=== PATIENT | female | born 1990 | race Caucasian/White ===

== ENCOUNTER 2017-01-07 12:00 | Inpatient (IN) | payer OTHER ==
[~2017-01-07] VITALS: Ht 149.9 cm; Wt 37.6 kg
--- NOTE | ~2017-01-07 | DS ---
Unit #: [id number] #: [id number] Patient: ANALY ACEVES [id number] [facility] [address] [place] [address] [id number] MR#: [id number] NAME: ANALY ACEVES ROOM: [facility] Age: 26 Sex: F Admission Date: 01/07/2017 : 1990 Discharge Date: 01/09/2017 Attending Physician: Umair Tracey M.D. Primary Care Physician: Primary Care Physician No DISCHARGE SUMMARY REASON FOR ADMISSION Depression. DIAGNOSTIC STUDIES LABORATORY RESULTS: Unremarkable. HOSPITAL COURSE The patient was admitted to inpatient unit on 01/07/2017 and discharged on 01/09/2017. The patient was treated with expressive therapy, medication management, psychotherapy, and structured milieu. The patient was cooperative and showed improvement. Denied any suicidal or homicidal ideations, or any psychotic symptom. Subsequently, the patient was discharged with a plan to follow up in outpatient program. DISCHARGE MEDICATIONS Lexapro 10 mg daily for depression, Vistaril 25 mg t.i.d. for anxiety, and Desyrel 50 mg at bedtime for sleep. DISCHARGE DIAGNOSES Psychiatric: Major depressive disorder, recurrent, severe, F33.2; anxiety disorder, not otherwise specified, F40.01. Secondary diagnosis: Deferred. Stressors: Psychosocial stressors. DISCHARGE INSTRUCTIONS The patient to follow up in outpatient clinic as per social work administrator. CONDITION ON DISCHARGE The patient was pleasant and cooperative. Denied any psychotic symptom or any suicidal ideation. PROGNOSIS Guarded. DIET AND ACTIVITY As tolerated. Dictated by... Umair Tracey M.D. Unit #: [id number] #: [id number] Patient: ANALY ACEVES SZC/modl TD: 01/09/2017 19:39 JOB #: [id number] DISCHARGE SUMMARY Page 1 of 1 X Umair Tracey MD X DISCHARGE SUMMARY
--- NOTE | ~2017-01-07 | PN ---
Unit #: [id number] #: [id number] Patient: POONAM ACEVES [id number] [facility] [address] [place] [address] [id number] I MR#: [id number] NAME: POONAM ACEVES ROOM: [facility] Age: 26 Sex: F Admission Date: 01/07/2017 : 1990 Attending Physician: Umair Tracey M.D. Admitting Physician: Umair Tracey M.D. Primary Care Physician: Primary Care Physician Mariah ROJO PROGRESS NOTES DATE 01/08/2017 DISCUSSION Poonam is a 26-year-old female seen on 01/08/2017. Patient interviewed. Chart reviewed. Obtained information from nursing staff. Patient compliant, cooperative. Mood sad, dysphoric, flat affect, guarded, anxious. Patient adjusting fairly well to unit rules. Complete review of system unremarkable. MENTAL STATUS EXAMINATION General appearance, patient dressed casually. Attention span, concentration fair. Oriented in time, place and person. Mood and affect sad, dysphoric. Speech monotone. Thought process concrete. Patient denied any thoughts of harming self or others or any psychotic symptoms. Recent and remote memory poor. Insight and judgement poor. DIAGNOSIS Major depressive disorder, recurrent, severe. ASSESSMENT/PLAN Advised to start patient on Celexa 20 mg daily, trazodone 50 mg at bedtime and Vistaril 25 mg t.i.d. for anxiety. We will continue to follow and make necessary changes if needed. Dictated by... Yolanda Mendez/akash TD: 01/09/2017 18:33 JOB #: [id number] Unit #: [id number] #: [id number] Patient: POONAM ACEVES PEAISMAEL PROGRESS NOTES Page 1 of 1 X Umair Tracey MD PROGRESS NOTE
--- NOTE | ~2017-01-07 | HP ---
Unit #: [id number] #: [id number] Patient: POONAM ACEVES [id number] [place] [address] [id number] I MR#: [id number] NAME: POONAM ACEVES ROOM: [facility] Age: 26 Sex: F Admission Date: 01/07/2017 : 1990 Attending Physician: Umair Tracey M.D. Admitting Physician: Umair Tracey M.D. Primary Care Physician: Primary Care Physician No HISTORY AND PHYSICAL HISTORY OF PRESENT ILLNESS Poonam is a 26 year old admitted to [address] [place] [address] with depression and verbalizing wanting to hurt herself. PAST MEDICAL HISTORY Nothing significant. PAST SURGICAL HISTORY Nothing reported. ALLERGIES No known drug allergies. SOCIAL HISTORY Smokes 1 1/2 packs per day. Drinks alcohol socially. Denies illicit drug use. FAMILY HISTORY Medically noncontributory. REVIEW OF SYSTEMS CONSTITUTIONAL: No fever or chills. HEENT: Denies any sore throat, ear pain or runny nose. CARDIOVASCULAR: Denies chest pain, irregular heart rhythm or palpitations. CHEST: Denies shortness of breath or cough. No hemoptysis. GASTROINTESTINAL: Denies nausea, vomiting, diarrhea or chronic constipation. ENDOCRINE: Denies history of increased thirst or urination. No recent significant weight loss or gain. GENITOURINARY: Denies dysuria, frequency, or hematuria. SKIN: Denies any rashes. HEMATOLOGIC: Denies history of increased bleeding or bruising. MUSCULOSKELETAL: Denies any hot, swollen joints. No generalized muscle pain. NEUROLOGIC: Denies problems with vision or speech. No frequent, severe headaches. No numbness, tingling or weakness in any extremities. Denies loss of bladder or bowel control. CURRENT MEDICATIONS 1. Desyrel 50 mg q h.s. 2. Milk of Magnesia p.r.n. 3. Maalox p.r.n. Unit #: [id number] #: [id number] Patient: POONAM ACEVES 4. Tylenol p.r.n. 5. Vistaril 25 mg t.i.d. 6. Lexapro 10 mg q day 7. Nicotine patch 14 mg q day PHYSICAL EXAMINATION GENERAL: Alert, well-nourished, in no apparent distress. VITAL SIGNS: Blood pressure 100/74, heart rate 80, respirations 16, temperature 98.6. WEIGHT: 83 pounds. HEIGHT: 4'11". SKIN: Warm and dry without rash or lesion. HEENT: Normocephalic. TMs not viewed. Oral and nasal passages clear. Conjunctivae clear. Pupils equal, round and reactive to light and accommodation. Extraocular movements intact. NECK: Supple without lymphadenopathy or thyromegaly. HEART: Regular rate and rhythm without murmur. LUNGS: Clear. ABDOMEN: Soft, nontender. : Not done. EXTREMITIES: No evidence of cyanosis, clubbing or edema. Moves all extremities without focal deficit. NEUROLOGICAL: Grossly within normal limits. Cranial Nerves: II: Visual brown are intact. III, IV AND : Extraocular movements are intact. Pupils are equal, round and reactive to light. V: Facial sensation is grossly normal. VII: Facial movements and expression are normal. VIII: Auditory acuity grossly intact. IX, X: Uvula is midline. Phonation is normal. XI: Patient shrugs shoulders and turns head normally. XII: Tongue protrudes in the midline. Sensory and Motor Function: Sensory and motor sensation is grossly normal. Motor: moves all extremities well. Coordination: Gait is normal. Deep Tendon Reflexes: Intact. IMPRESSION Psychiatric admission RECOMMENDATIONS PSYCHIATRIC: Per psychiatrist. MEDICAL: I see no contraindications to participating in facility's activities. MEDICAL PROGNOSIS Good. MEDICAL CONDITION Stable. Dictated by... Joceline Bolton P.A.-C. for Yolanda Hills/kathryn Unit #: [id number] #: [id number] Patient: POONAM ACEVES TD: 01/09/2017 04:07 JOB #: [id number] HISTORY AND PHYSICAL Page 1 of 1 X Joceline Bolton HISTORY AND PHYSICAL
--- NOTE | ~2017-01-07 | A ---
[facility] Nutrition Therapy DATE: 01/08/17 Patient: ANALY ACEVES Physician: EL Address: [address] [place] [address] Room/Bed: P115-1 [facility], Zip: [place] [address] Admit Date: 01/07/17 Date of : [birth year] Height: 4 11 Weight: 82 [id number] NUTRITIONAL ASSESSMENT: REASON: LOW BMI (16.8) PATIENT ADMITTED FOR SI AND DEPRESSION PMH: NONE Anthropometrics: HT: 4'11", WT: 83#, BMI: 16.8, %IBW: 85 Labs: NO LABS AVAILABLE Meds: DESYREL, VISTARIL, LEXAPRO Assessment: PATIENT IS A 26 Y/O FEMALE ADMITTED FOR SI AND DEPRESSION. PATIENT IS CURRENTLY EMPLOYED, LIVES WITH HER 3 CHILDREN, SMOKES 1 1/2 PPD, HAS OCCASIONAL ETOH USE, AND DENIES ANY SUBSTANCE ABUSE. IT IS NOTED THAT PATIENT HAS BEEN NON-COMPLIANT WITH HER ANXIETY AND DEPRESSION MEDICATIONS FOR THE LAST MONTH. PER NEEDS ASSESSMENT PATIENT STATED A GOOD APPETITE WITH NO RECENT WEIGHT CHANGES, AND SHE HAS DECREASED SLEEP. THERE IS NO WEIGHT HX NOTED IN MEDITECH AND THERE ARE NO CURRENT PO INTAKES AVAILABLE. PATIENT DID NOT SCORE ANY NUTRITIONAL RISK POINTS. THERE ARE NO SKIN OR GI ISSUES NOTED ATT. CURRENT PSYCH MEDS MAY CAUSE FLUCTUATIONS IN WEIGHT AND APPETITE. PATIENT IS ON A REGULAR DIET. Dx: INADEQUATE NUTRIENT INTAKE R/T CURRENT CONDITION, DEPRESSION AEB LOW BMI, <90% IBW Intervention: REGULAR DIET, LARGER PORTIONS, MEDS PER MD, PSYCH Monitoring, Evaluation and Goals: 1. ADEQUATE PO INTAKES >50% OF MEALS 2. PREVENT, CORRECT MICRO/MACRO NUTRIENT DEFICIENCIES 3. WEIGHT; PROMOTE A STEADY WEIGHT GAIN TOWARDS A HEALTHY BMI OF 19-25, PREVENT WEIGHT LOSS MONITOR: WEIGHTS, LABS, PO/FLUID INTAKES Recommendations: 1. CONTINUE REGULAR DIET TOLERATED. OFFER SNACKS BETWEEN MEALS. WILL INCREASE ENTREES TO LARGER PORTIONS D/T NEED FOR INCREASED CALORIC INTAKE 2. ENCOURAGE ADEQUATE KCAL AND PROTEIN INTAKES 3. OBTAIN WEIGHTS ROUTINELY (EVERY 3-4 DAYS) 4. IF PO INTAKES ARE BELOW 50% OF MEALS PLEASE ORDER ENSURE BID TO PROMOTE ADEQUATE KCAL [facility] Nutrition Therapy DATE: 01/08/17 Patient: ANALY ACEVES Physician: EL Address: [address] [place] [address] Room/Bed: P115-1 [facility], Zip: [place] [address] Admit Date: 01/07/17 Date of : [birth year] Height: 4 11 Weight: [id number] TO F/U PER PROTOCOL AND PRN R/T PATIENT MILDLY COMPROMISED Respectfully, LEORA ESQUIVEL, KIRA, LD [employer] [facility] cc: client file
--- NOTE | ~2017-01-07 | PA ---
Unit #: [id number] #: [id number] Patient: POONAM ACEVES [id number] [facility] [address] [place] [address] [id number] I MR#: [id number] NAME: POONAM ACEVES ROOM: [facility] Age: 26 Sex: F Admission Date: 01/07/2017 : 1990 Date of Assessment: 01/08/2017 Attending Physician: Umair Tracey M.D. Admitting Physician: Umair Tracey M.D. Primary Care Physician: Primary Care Physician No PSYCHIATRIC ASSESSMENT INFORMANTS The patient reliability, fair informant and chart reliability, good. CHIEF COMPLAINT Depression. HISTORY OF PRESENT ILLNESS Poonam is a 26-year-old white female, seen on with the above-mentioned complaint. The patient reported feeling sad, depressed, and feeling suicidal. Reported feeling of more intense in the middle of the night. The patient reports that calling her sons' grandfather and asking him to transfer her to the emergency room. The patient reported having suicidal thoughts, sad, depressed, and feeling of hopelessness. The patient presented to the [facility] Emergency room with suicidal thoughts, wanting to drive her car into her ex-'s house or to do anything to kill herself. The patient reports a long history of depression and anxiety. The patient reports that she has not been compliant with her medication in the last month and reports feeling increased depression and anxiety, racing thoughts, and unable to concentrate. The patient reports she attempted suicide at age 12, the same [address] now she did when she attempted before. The patient needing inpatient admission at this time for psychiatric stabilization. PAST PSYCHIATRIC HISTORY Remarkable for history of previous suicide attempt, history of previous followup through [facility], outpatient services through various therapists, and inpatient at age 12. FAMILY HISTORY AND SOCIAL HISTORY The patient lives at home with 3 sons; 12, 9, and 8. Reported good support system. No history of abuse. No history of any substance abuse. According to the reports, history of depression and alcohol problem in mother, depression in father, history of alcohol and committing suicide in maternal grandfather, committed suicide in maternal great grandmother, and bipolar disorder in maternal aunt. MEDICAL HISTORY Unremarkable for any chronic medical condition. Musculoskeletal; muscle strength and tone, no atrophy or abnormal movement. Gait normal. MEDICATION HISTORY None, but the patient was on Lexapro and BuSpar before. Unit #: [id number] #: [id number] Patient: POONAM ACEVES ALLERGIES No known drug allergies. SUBSTANCE ABUSE HISTORY None, but the patient started using tobacco at age of 11; alcohol, 16; and marijuana, 12. No recent use. Reports drinking liquor socially. REVIEW OF SYSTEMS HEENT: Eyes, clear. Ears, nose, mouth, and throat; clear. CARDIOVASCULAR: Unremarkable. RESPIRATORY: Unremarkable. GI: Unremarkable. : Unremarkable. SKIN: Unremarkable. LYMPH NODE: Unremarkable. NEUROLOGIC: Unremarkable. ENDOCRINE: Unremarkable. HEMATOLOGIC: Unremarkable. ALLERGIC/IMMUNOLOGIC: Unremarkable. MUSCULOSKELETAL: Muscle strength and tone, no atrophy or abnormal movement. Gait normal. MENTAL STATUS EXAMINATION CONSTITUTIONAL: Measurement of vital signs; temperature 98.6, heart rate 81, respiratory rate 14, and blood pressure 88/74. Height 4 feet 11 inches and weight 83 pounds. GENERAL APPEARANCE: The patient dressed casually. The patient did not show any facial deformity. MUSCULOSKELETAL: Please see above. PSYCHIATRIC EXAMINATION Description of speech; regular rate, normal volume, normal articulation, and coherent. Description of thought process, goal directed. Description of association, intact. Description of abnormal psychotic thinking; the patient denied any hallucination or delusions, but mood lability, sad, depressed, suicidal ideation, and depression. Description of the patient's judgment: Concerning everyday activity, poor. Social situation, poor. Concerning psychiatric condition, poor. ASSETS AND LIABILITIES Assets, the patient is articulate and able to take care of her ADL. Liability, history of depression and previous suicide attempt. ADMITTING DIAGNOSES Psychiatric: Major depressive disorder, recurrent, severe, F33.2 and anxiety disorder, not otherwise specified, F40.01. Secondary diagnosis: Deferred. Medical diagnosis: None. Stressors: Psychosocial stressors. PSYCHIATRIC PLAN AND TREATMENT GOAL AND DISCHARGE PLAN 1. Advised to admit the patient on the inpatient unit. Provide safe, supportive, and structured environment. 2. Ordered labs; CBC, CMP, UA, UDS, and test. 3. Plan to consider medication such as SSRI and medication for sleep and Unit #: [id number] #: [id number] Patient: POONAM ACEVES anxiety. The patient to attend all the programing, group therapy, individual therapy, and structured milieu. Treatment goal to attain euthymic mood, gain insight into her problem, and learn coping skills. DISCHARGE PLAN Plan to stabilize the patient and consider followup in outpatient program. ESTIMATED LENGTH OF STAY 3 to 5 days. Dictated by... Yolanda Mendez/yaw TD: 01/08/2017 17:09 JOB #: [id number] PSYCHIATRIC ASSESSMENT Page 1 of 1 X Umair Tracey MD X PSYCHIATRIC ASSESSMENT
== END 2017-01-09 10:35 | disposition home or self-care (01) | DRG 885 ==
LOC: P1S 17:03
DX: F33.2 Major depressive disorder, recurrent severe without psychotic features (principal); F41.9 Anxiety disorder, unspecified; F17.210 Nicotine dependence, cigarettes, uncomplicated